=== PATIENT | female | born 1950 | race American Indian/Alaskan Native ===

== ENCOUNTER 2016-11-23 16:20 | Emergency (ER) | payer OTHER ==
--- NOTE | 2016-11-23 17:51 | Emergency Department Report ---
ED Extremity Problem HPI - General Chief complaint: Back Pain/Injury Stated complaint: LWR BACK PAIN/ARM SKIN BREAKOUT Time Seen by Provider: 11/23/16 17:41 Source: patient Mode of arrival: Ambulatory Limitations: No Limitations - History of Present Illness Initial comments: Patient complains of right lower back pain 5 days after tripping on her shoe but did not fall to the ground. Patient states the pain radiates from right lower back to right leg. She does have a history of hip surgery on the right in 2001, she has also been having lower right back pain before this injury and is scheduled for an appointment in 3 days with an orthopedic surgeon. She is also complaining of a rash on bilateral upper extremities bilateral groins, back, and right foot. She denies itching, pain, irritation. She denies change in her soaps or detergents. She does admit when she gets hot more of these areas appear. Rash has been present for 1.5 months. MD Complaint: extremity pain -: Gradual History of Same: Yes -: Yes arthralgia Severity scale (0 -10): 10 Quality: aching, sharp Consistency: constant Worsens with: walking Associated Symptoms: denies other symptoms - Related Data Previous Rx's Medication Instructions Recorded Last Taken Type Diclofenac Sodium 75 mg PO DAILY #7 tablet. 11/23/16 Unknown Rx Allergies Allergy/AdvReac Type Severity Reaction Status Date / Time Penicillins Allergy Itching Verified 11/23/16 16:58 Sulfa (Sulfonamide Allergy Itching Verified 11/23/16 16:58 Antibiotics) ED Review of Systems ROS: Stated complaint: LWR BACK PAIN/ARM SKIN BREAKOUT Other details as noted in HPI Constitutional: denies: chills, fever Respiratory: denies: cough, shortness of breath, wheezing Cardiovascular: denies: chest pain, palpitations Gastrointestinal: denies: abdominal pain, nausea, diarrhea Musculoskeletal: as per HPI Skin: as per HPI Neurological: denies: headache, weakness, paresthesias ED Past Medical Hx - Medications Home Medications: Home Medications Medication Instructions Recorded Confirmed Last Taken Type Diclofenac Sodium 75 mg PO DAILY #7 tablet. 11/23/16 Unknown Rx ED Physical Exam - General Limitations: No Limitations General appearance: alert, in no apparent distress - Head Head exam: Present: atraumatic, normocephalic - Respiratory Respiratory exam: Present: normal lung sounds bilaterally. Absent: respiratory distress - Cardiovascular Cardiovascular Exam: Present: regular rate, normal rhythm. Absent: systolic murmur, diastolic murmur, rubs, gallop - Extremities Exam Extremities exam: Present: normal inspection, full ROM - Back Exam Back exam: Present: normal inspection, full ROM, tenderness (right lumbar) - Neurological Exam Neurological exam: Present: alert, oriented X3 - Psychiatric Psychiatric exam: Present: normal affect, normal mood - Skin Skin exam: Present: other (scattered annular dark lesions on bilateral upper ext , lower extremities, right foot and back. ) ED Course Vital Signs 11/23/16 16:58 Temperature 98.4 F Pulse Rate 92 H Respiratory 16 Rate Blood Pressure 136/84 O2 Sat by Pulse 100 Oximetry - Reevaluation(s) Reevaluation #1: 11/23/16 18:[address] Marry León about patient's rash. He informs to order CBC, CMP, PT, PTT, hepatitis panel ED Medical Decision Making - Medical Decision Making Patient presents with chronic right lower back pain. She states it has worsened after she tripped 5 days ago. She is not currently on any medications for her chronic back pain. She is following up with orthopedic surgeon on . I will give her diclofenac 75mg daily x 7 days. Patient presents with scattered rash on bilateral upper and lower extremities, back, right foot. CMP, CBC, PT, PTT, hepatitis panel ordered per Dr. Candelaria, awaiting results. - Differential Diagnosis radiculopathy, spondylosis, contact dermatitis, tinea corporis Critical Care Time: No Critical care attestation.: If time is entered above; I have spent that time in minutes in the direct care of this critically ill patient, excluding procedure time. ED Disposition Clinical Impression: Lumbago with sciatica, right side, Rash and nonspecific skin eruption Disposition: DISCHARGED TO HOME OR SELFCARE Is pt being admited?: No Does the pt Need Aspirin: No Condition: Stable Instructions: Low Back Strain (ED), Chronic Back Pain (ED), Acute Rash (ED) Additional Instructions: F/u with Masood Trujillo, dermatology or your preferred radiology transporter for skin rash. rest, ice, heat, stretching, chiropractor, message, f/u with orthopedic as scheduled. Prescriptions: Diclofenac Sodium 75 mg PO DAILY #7 tablet. Referrals: RONEL ISRAEL NP [Primary Care Provider] - 3-5 Days Forms: Work/School Release Form(ED) Time of Disposition: 18:42
[2016-11-23] MEDS ORDERED: TORADOL IM ONE (18:03)
[2016-11-23 18:58] LABS: Basophils % (Auto) 0.5 % (0.0-1.8); Eosinophils % (Auto) 1.5 % (0.0-4.3); Mean Corpuscular HGB Conc 30 % (30-34); Red Blood Count 6.05 M/mm3 (3.65-5.03); Red Cell Distribution Width 15.6 % (13.2-15.2); White Blood Count 12.3 K/mm3 (4.5-11.0)
[2016-11-23 19:04] LABS: INR 1.12 (0.87-1.13)
[2016-11-23 19:05] LABS: Partial Thromboplastin Time 21.8 Sec. (24.2-36.6)
[2016-11-23 19:16] LABS: Hemoglobin 12.5 gm/dl (10.1-14.3)
[2016-11-23 19:17] LABS: Hematocrit 41.4 % (30.3-42.9); Mean Corpuscular Hemoglobin 21 pg (28-32); Mean Corpuscular Volume 68 fl (79-97)
[2016-11-23 19:18] LABS: Alanine Aminotransferase 12 units/L (7-56); Albumin 3.6 g/dL (3.9-5); Albumin/Globulin Ratio 0.9 %; Alkaline Phosphatase 61 units/L (35-129); Bilirubin,Total 0.2 mg/dL (0.1-1.2); Blood Urea Nitrogen 12 mg/dL (7-17); Calcium 9.4 mg/dL (8.4-10.2); Carbon Dioxide 21 mmol/L (22-30); Chloride 108.4 mmol/L (98-107); Glucose 96 mg/dL (65-100); Potassium 4.4 mmol/L (3.6-5.0); Sodium 142 mmol/L (137-145); Total Protein 7.5 g/dL (6.3-8.2)
[2016-11-23 19:20] LABS: Anion Gap 17 mmol/L; Bilirubin,Direct < 0.2 mg/dL (0-0.2)
[2016-11-23 19:49] LABS: Platelet Count 260 K/mm3 (140-440)
[2016-11-23 20:25] VITALS: BP 148/82
== END 2016-11-23 18:42 | disposition home or self-care (01) ==
LOC: ED 16:20
DX: M54.41 Lumbago with sciatica, right side (principal); R21 Rash and other nonspecific skin eruption; Z88.0 Allergy status to penicillin; Z88.2 Allergy status to sulfonamides
CPT/HCPCS: 36415; 80053; 80074; 85025; 85610; 85730; 96372; 99283; J1885